=== PATIENT | female | born 1955 | race Two or more races ===

== ENCOUNTER 2025-03-03 09:09 | Outpatient (CLI) | payer OTHER | END 2025-03-03 09:12 | disposition home or self-care (01) | LOC: TOM 09:09 | DX: N93.9 Abnormal uterine and vaginal bleeding, unspecified (principal); N85.00 Endometrial hyperplasia, unspecified; C56.9 Malignant neoplasm of unspecified ovary; C54.1 Malignant neoplasm of endometrium; N83.9 Noninflammatory disorder of ovary, fallopian tube and broad ligament, unspecified; R07.9 Chest pain, unspecified | CPT/HCPCS: 71046; 72197; 74183; Q9965 ==

== ENCOUNTER 2025-03-25 07:12 | Outpatient (CLI) | payer OTHER | END 2025-03-25 07:24 | disposition home or self-care (01) | LOC: NUCLEAR 07:12 | PROVIDERS: ATTEND General Practice | DX: C54.1 Malignant neoplasm of endometrium (principal); C78.00 Secondary malignant neoplasm of unspecified lung; C79.9 Secondary malignant neoplasm of unspecified site ==

== ENCOUNTER 2025-03-28 07:19 | Day surgery (SDC) | payer OTHER ==
[2025-03-28] MEDS ORDERED: FLUMAZENIL 0.5 MG/5 ML ML IV STA (11:19)
[2025-03-28] MEDS ORDERED: NALOXONE HCL 0.4 MG/ML AMPUL IV STA (11:19)
[2025-03-28] MEDS ORDERED: MIDAZOLAM HCL 2 MG/2 ML VIAL IV ONE (11:30)
[2025-03-28] MEDS ORDERED: DIPHENHYDRAMINE HCL 50 MG/ML VIAL 1ML IV ONE (11:30)
[2025-03-28] MEDS ORDERED: fentaNYL CITRATE 50 MCG/ML AMPUL IV PUSH ONE (11:30)
== END 2025-03-28 13:45 | disposition home or self-care (01) ==
LOC: AMB-ENDOS 07:19
PROVIDERS: ATTEND Surgery
DX: K57.30 Diverticulosis of large intestine without perforation or abscess without bleeding (principal); K59.00 Constipation, unspecified; Z12.11 Encounter for screening for malignant neoplasm of colon; C54.1 Malignant neoplasm of endometrium; Z88.0 Allergy status to penicillin

== ENCOUNTER 2025-04-22 08:02 | Outpatient (CLI) | payer OTHER ==
[2025-04-22 09:21] LABS: BASO % 0.9 % (0.1-1.2); EOS # 0.26 (0.04-0.54); HEMATOCRIT 40.9 % (34.1-44.9); HEMOGLOBIN 13.6 g/dL (11.2-15.7); LYMPH # 1.72 (1.18-3.74); LYMPH % 26.7 % (19.3-53.1); MONO # 0.48 (0.24-0.82); MONO % 7.4 % (4.7-12.5); NEUT # 3.92 (1.56-6.13); NEUT % 60.8 % (34.0-71.1); PLATELET COUNT 167 K/uL (163-369); RED BLOOD COUNT 4.53 M/uL (3.93-5.22); RED CELL DISTRIBUTION WIDTH 13.8 % (11.6-14.4)
[2025-04-22] MEDS ORDERED: PLAVIX75 MG PO (09:29)
[2025-04-22] MEDS ORDERED: ZESTRIL5 MG PO (09:30)
[2025-04-22] MEDS ORDERED: EZALLOR SPRINKL20 MG PO (09:30)
[2025-04-22] MEDS ORDERED: ECOTRIN81 MG PO (09:30)
[2025-04-22] MEDS ORDERED: XELPROS2.5 ML OP (09:31)
[2025-04-22 09:37] LABS: URINE APPEARANCE Clear; URINE BILIRRUBIN Negative (NEGATIVE); URINE BLOOD Trace; URINE COLOR Yellow; URINE GLUCOSE Negative (NEGATIVE); URINE KETONE Negative (NEGATIVE); URINE LEUKOCYTE Small; URINE NITRATE Negative; URINE PROTEIN Negative (NEGATIVE); URINE UROBILINOGEN 0.2 E.U./dl
[2025-04-22 09:41] LABS: URINE BACTERIA 48.9 uL (0.0-1933)
[2025-04-22 09:47] LABS: INR 1.03; PARTIAL THROMBOPLASTIN TIME 26.4 SECONDS (22.0-34.0); PROTHROMBIN TIME 11.2 SECONDS (9.0-11.5)
[2025-04-22 09:50] LABS: COVID-19 AG NEGATIVE (NEGATIVE)
[2025-04-22 09:58] LABS: ALBUMIN 3.7 gm/dL (3.4-5.0); BILIRUBIN TOTAL 0.63 mg/dL (0.3-1.2); CALCIUM 9.2 mg/dL (8.5-10.1); CREATININE SERUM 0.59 mg/dL (0.55-1.02); GFR 100.48; GLOBULINA 4.1 G/DL (2.4-3.5); POTASSIUM 4.42 mEq/L (3.5-5.1); TOTAL PROTEIN 7.8 gm/dL (6.4-8.2)
[2025-04-22 10:58] LABS: RH POSITIVE
== END 2025-04-22 09:55 | disposition home or self-care (01) ==
LOC: LAB 08:02
PROVIDERS: ATTEND Surgery
DX: D64.9 Anemia, unspecified (principal); N39.0 Urinary tract infection, site not specified; R97.1 Elevated cancer antigen 125 [CA 125]; R97.8 Other abnormal tumor markers; I10 Essential (primary) hypertension; Z01.818 Encounter for other preprocedural examination; Z20.822 Contact with and (suspected) exposure to COVID-19; C54.1 Malignant neoplasm of endometrium

== ENCOUNTER 2025-04-22 09:43 | Inpatient (IN) | payer OTHER ==
[~2025-04-22] VITALS: Ht 182.9 cm; Wt 65.3 kg
[~2025-04-22 09:43] MED LIST: ECOTRIN81 MG PO; EZALLOR SPRINKL20 MG PO; PLAVIX75 MG PO; XELPROS2.5 ML OP; ZESTRIL5 MG PO
[2025-04-28] MEDS ORDERED: HEMOSTATIC MATRIX WITH THROMBIN KIT TOP ONE (12:54)
[2025-04-28] MEDS ORDERED: SURGIFLO APPLICATOR 1 EACH APPL TOP ONE (12:54)
[2025-04-28] MEDS ORDERED: POVIDONE-IODINE 118 ML BOTT TOP ONE (12:56)
[2025-04-28] MEDS ORDERED: CLINDAMYCIN PHOSPHATE 150 MG/ML (600mg) IV ONE (15:15)
[2025-04-28] MEDS ORDERED: METRONIDAZOLE/SODIUM CHLORIDE 500 MG/100 ML PIGGYBACK IV ONE (15:15)
[2025-04-28] MEDS ORDERED: SUGAMMADEX SODIUM 200 MG/2 ML VIAL IV ONE (15:36)
[2025-04-28] MEDS ORDERED: ONDANSETRON HCL 2 MG/ML VIAL IV PRN (16:30)
[2025-04-28] MEDS ORDERED: MORPHINE SULFATE 4 MG/ML CARTRIDGE IV PRN (16:30)
[2025-04-28] MEDS ORDERED: OxyCODONE HCL 5 MG TABLET (ROXICODONE) PO PRN (16:30)
[2025-04-28] MEDS ORDERED: RINGERS SOLUTION,LACTATED 1,000 ML IV SCH (16:30)
[2025-04-28] MEDS ORDERED: METRONIDAZOLE/SODIUM CHLORIDE 500 MG/100 ML PIGGYBACK IV SCH (17:00)
[2025-04-28] MEDS ORDERED: SIMETHICONE 125 MG CAPSULE PO SCH (17:00)
[2025-04-28] MEDS ORDERED: MORPHINE SULFATE 4 MG/ML VIAL IV ONE (17:20)
[2025-04-28] MEDS ORDERED: KETOROLAC TROMETHAMINE 30 MG VIAL IM SCH (18:00)
[2025-04-28] MEDS ORDERED: ONDANSETRON HCL 2 MG/ML VIAL ONE (18:40)
[2025-04-28 19:24] LABS: ALBUMIN 1.9 gm/dL (3.4-5.0); ANION GAP 17 (10.0-20.0); BLOOD UREA NITROGEN 5 mg/dL (7-18); CALCIUM 7.6 mg/dL (8.5-10.1); CARBON DIOXIDE 19 mEq/L (21-32); CHLORIDE 109 mmol/L (98-107); GLUCOSE FASTING 80 mg/dL (65-100); OSMOLALITY SERUM 277 MOSM/KG (275-295); POTASSIUM 3.94 mEq/L (3.5-5.1); SODIUM 141 mmol/L (136-145)
[2025-04-28 19:26] LABS: BUN CREA RATIO 33 (7.0-25.0); CREATININE SERUM < 0.15 mg/dL (0.55-1.02); GFR 488.04
[2025-04-28] MEDS ORDERED: KETOROLAC TROMETHAMINE 30 MG VIAL ONE (20:16)
[2025-04-28] MEDS ORDERED: FAMOTIDINE/PF 20 MG/2 ML VIAL ONE (20:16)
[2025-04-28 20:34] LABS: PHOSPHOROUS 1.7 mg/dL (2.5-4.9)
[2025-04-28] MEDS ORDERED: FAMOTIDINE/PF 20 MG/2 ML VIAL IV PUSH SCH (21:00)
[2025-04-28 21:15] VITALS: BP 121/72; O2SAT 98
[2025-04-28 21:20] LABS: BASO % 0.4 % (0.1-1.2); EOS # 0.03 (0.04-0.54); EOS % 0.2 % (0.7-7.0); HEMATOCRIT 41.1 % (34.1-44.9); HEMOGLOBIN 13.8 g/dL (11.2-15.7); LYMPH # 1.49 (1.18-3.74); MONO # 1.09 (0.24-0.82); MONO % 6.6 % (4.7-12.5); NEUT # 13.85 (1.56-6.13); NEUT % 83.5 % (34.0-71.1); RED BLOOD COUNT 4.45 M/uL (3.93-5.22); RED CELL DISTRIBUTION WIDTH 13.9 % (11.6-14.4)
[2025-04-28 21:23] LABS: PLATELET COUNT 129 K/uL (163-369)
[2025-04-29 01:00] VITALS: BP 104/60; O2SAT 100
[2025-04-29 07:07] LABS: BASO % 0.2 % (0.1-1.2); HEMATOCRIT 38.6 % (34.1-44.9); HEMOGLOBIN 12.9 g/dL (11.2-15.7); LYMPH # 1.22 (1.18-3.74); LYMPH % 9.9 % (19.3-53.1); MEAN CORPUSCULAR HEMOGLOBIN 30.6 pg (25.6-32.2); MONO # 0.68 (0.24-0.82); MONO % 5.5 % (4.7-12.5); NEUT # 10.35 (1.56-6.13); NEUT % 84.1 % (34.0-71.1); PLATELET COUNT 132 K/uL (163-369); RED BLOOD COUNT 4.21 M/uL (3.93-5.22); RED CELL DISTRIBUTION WIDTH 13.8 % (11.6-14.4)
[2025-04-29 07:43] LABS: CALCIUM 8.9 mg/dL (8.5-10.1); CREATININE SERUM 0.48 mg/dL (0.55-1.02); GFR 127.49; PHOSPHOROUS 3.8 mg/dL (2.5-4.9); POTASSIUM 3.94 mEq/L (3.5-5.1)
[2025-04-29 08:00] VITALS: BP 147/79; O2SAT 100
[2025-04-29] MEDS ORDERED: TRAMADOL HCL 50 MG TABLET PO PRN (08:15)
[2025-04-29 08:34] LABS: PH,URINE 6.5 (5.0-8.0); URINE APPEARANCE Clear; URINE BILIRRUBIN Negative (NEGATIVE); URINE BLOOD Large; URINE COLOR Yellow; URINE GLUCOSE Negative (NEGATIVE); URINE LEUKOCYTE Trace; URINE NITRATE Negative; URINE PROTEIN Negative (NEGATIVE); URINE UROBILINOGEN 0.2 E.U./dl
[2025-04-29 08:38] LABS: URINE RBC 292.2 uL (0.0-20.8); URINE WBC 14.2 uL (0.0-23.2)
[2025-04-29 08:41] LABS: URINE CAST 0.14 uL (0.0-1.40); URINE KETONE 40 (NEGATIVE)
[2025-04-29] MEDS ORDERED: ENOXAPARIN SODIUM 40 MG/0.4 ML SYRINGE SUBCUTANEO SCH (09:00)
== END 2025-04-29 14:15 | disposition home or self-care (01) | DRG 741 ==
LOC: SURH 04-28 07:21 → O/R 04-28 09:33 → SURH 04-28 09:56 → OB/GYN 04-28 17:54 → MEDI 04-28 18:46 → SURG 04-28 19:11 → SURH 04-28 21:30 → SURG 04-29 14:15
PROVIDERS: General Practice; ADMIT Obstetrics & Gynecology Gynecologic Oncology; ATTEND Obstetrics & Gynecology Gynecologic Oncology
PROC: 0UT70ZZ Resection of Bilateral Fallopian Tubes, Open Approach (ICD-10-PCS; 2025-04-28)
PROC: 07BC0ZZ Excision of Pelvis Lymphatic, Open Approach (ICD-10-PCS; 2025-04-28)
PROC: 0UT20ZZ Resection of Bilateral Ovaries, Open Approach (ICD-10-PCS; 2025-04-28)
PROC: 8E0W0CZ Robotic Assisted Procedure of Trunk Region, Open Approach (ICD-10-PCS; 2025-04-28)
PROC: 0UT90ZZ Resection of Uterus, Open Approach (ICD-10-PCS; principal; 2025-04-28 21:30)
DX: C54.1 Malignant neoplasm of endometrium (principal)
CPT/HCPCS: 58548; S2900